=== PATIENT | female | born 1960 | race Caucasian/White ===

== ENCOUNTER 2020-08-06 21:11 | Observation (INO) ==
[2020-08-06] MEDS ORDERED: Ketorolac 15 MG/ML VIAL IVP ONE (21:49)
[2020-08-06] MEDS ORDERED: Isovue-370 500 ML BOTTLE IVP ONE (21:49)
[2020-08-06] MEDS ORDERED: Ondansetron 4 MG/2 ML VIAL IVP ONE (21:49)
[2020-08-06 22:21] LABS: Basophils % 0.3 %; Eosinophils # 0.2 K/mcL (0.0-0.6); Eosinophils % 1.3 %; Hematocrit 39.7 % (35.3-44.9); Hemoglobin 13.3 g/dL (11.5-15.4); Immature Granulocytes % 0.2 % (0-4); Lymphocytes # 1.3 K/mcL (0.6-4.6); Mean Corpuscular HGB Conc 33.5 g/dL (31.6-35.5); Mean Corpuscular Volume 92.5 fL (83.0-100.0); Monocytes # 0.6 K/mcL (0.0-1.3); Monocytes % 4.9 %; Neutrophils # 9.9 K/mcL (1.6-8.9); Platelet Count 235 K/mcL (140-400); Red Blood Count 4.29 M/mcL (3.82-4.97); Red Cell Distribution Width 13.1 % (11.5-14.5); Segmented Neutrophils % 82.3 %; White Blood Count 12.1 K/mcL (4.3-11.1)
[2020-08-06 22:22] LABS: Bilirubin,Urine Negative (Negative); Blood,Urine Negative (Negative); Clarity,Urine Clear (Clear); Color,Urine Light-Yellow (Yellow); Glucose,Urine (UA) Normal (Normal); Ketones,Urine 10 mg/dL (Negative); Leukocyte Esterase,Urine Negative (Negative); Nitrite,Urine Negative (Negative); PH,Urine 5.5 pH Units (5.0-8.0); Protein,Urine Trace mg/dL (Neg-Trace); Specific Gravity,Urine 1.023 (1.010-1.025); Urobilinogen,Urine Normal (Normal)
[2020-08-06 22:41] LABS: Alanine Aminotransferase 12 Units/L (7-52); Albumin 4.4 g/dL (3.5-5.7); Albumin/Globulin Ratio 1.8 (1.1-2.2); Alkaline Phosphatase 59 Units/L (34-104); Aspartate Amino Transferase 17 Units/L (13-39); BUN/Creatinine Ratio 11 (6-26); Bilirubin,Direct 0.1 mg/dL (0.0-0.2); Bilirubin,Total 1.1 mg/dL (0.3-1.0); Blood Urea Nitrogen 8 mg/dL (8-23); Calcium 9.4 mg/dL (8.6-10.3); Carbon Dioxide 25 mEq/L (23-29); Chloride 105 mEq/L (98-107); Globulin 2.4 g/dL (2.4-3.5); Glucose 112 mg/dL (70-105); Lipase 27 Units/L (11-82); Osmolality,Calculated 285 (280-300); Potassium 3.5 mEq/L (3.5-5.1); Sodium 138 mEq/L (136-145); Total Protein 6.8 g/dL (6.4-8.9); eGFR For African Americans > 60 (> 60); eGFR For Non-African Americans > 60 (> 60)
[2020-08-06] MEDS ORDERED: 0.9 % Sodium Chloride 1,000 ML IVC SCH (23:45)
[2020-08-06] MEDS ORDERED: Ondansetron 4 MG/2 ML VIAL IVP PRN (23:46)
[2020-08-07] MEDS ORDERED: Piperacillin/Tazobactam 3.375 GM in 0.9 % Sodium Chloride Mini Bag 100 ML IVPB SCH
[2020-08-07] MEDS: cefOXitin 2,000 MG in Water for inj. (sterile) 20 ML IVP SCH ×3 (00:48→17:13)
[2020-08-07] MEDS ORDERED: Ondansetron 4 MG/2 ML VIAL IVP PRN (07:24)
[2020-08-07] MEDS ORDERED: *HR* HYDROmorphone PF 0.5 MG/0.5 ML SYRINGE IVP PRN (07:24)
[2020-08-07] MEDS ORDERED: Promethazine 6.25 MG in Water for inj. (sterile) 20 ML IVPB PRN (07:24)
[2020-08-07] MEDS ORDERED: *HR* OxyCODONE Immed Rel 5 MG TABLET PO PRN (07:24)
[2020-08-07] MEDS ORDERED: *HR* FentaNYL (PF) 100 MCG/2 ML VIAL ONE (07:30)
[2020-08-07] MEDS ORDERED: *HR* Midazolam HCl 2 MG/2 ML VIAL ONE (07:30)
[2020-08-07] MEDS ORDERED: *HR* Propofol 200 MG/20 ML VIAL IVP ONE (07:30)
[2020-08-07] MEDS ORDERED: Lidocaine HCL 4 ML Topical Solution (Laryng-O-Jet Kit Sterile Pak) TP ONE (07:30)
[2020-08-07] MEDS ORDERED: *HR* Rocuronium Bromide 50 MG/5 ML VIAL ONE (07:30)
[2020-08-07] MEDS ORDERED: *HR* Succinylcholine 200 MG/10 ML VIAL IVP ONE (07:30)
[2020-08-07] MEDS ORDERED: Ondansetron 4 MG/2 ML VIAL ONE (07:30)
[2020-08-07] MEDS ORDERED: Lidocaine -MPF 2% 2 ML VIAL ONE (07:30)
[2020-08-07] MEDS ORDERED: cefOXitin 1,000 MG, 0.9 % Sodium Chloride 1,000 ML IR ONE (08:00)
[2020-08-07] MEDS ORDERED: Sugammadex Sodium 200 MG/2 ML VIAL IV ONE (08:43)
[2020-08-07] MEDS ORDERED: Ketorolac 30 MG/ML VIAL ONE (08:53)
[2020-08-07] MEDS ORDERED: Albuterol 2.5 MG/3 ML NEBULIZER IH STA (09:32)
[2020-08-07] MEDS ORDERED: Albuterol 2.5 MG/3 ML NEBULIZER ONE (09:34)
[2020-08-07] MEDS ORDERED: *HR* Metoprolol 5 MG/5 ML VIAL IVP PRN (10:52)
[2020-08-07] MEDS: 0.9 % Sodium Chloride 1,000 ML IVC SCH (12:00)
[2020-08-07] MEDS: Albuterol 2.5 MG/3 ML NEBULIZER IH SCH ×2 (16:03→21:27)
[2020-08-07] MEDS: *HR* OxyCODONE/APAP 5/325 TABLET PO PRN (21:44)
[2020-08-08] MEDS: 0.9 % Sodium Chloride 1,000 ML IVC SCH (00:15)
[2020-08-08] MEDS: cefOXitin 2,000 MG in Water for inj. (sterile) 20 ML IVP SCH ×3 (00:16→16:01)
[2020-08-08 02:33] LABS: Basophils % 0.1 %; Eosinophils % 0.3 %; Hematocrit 31.8 % (35.3-44.9); Immature Granulocytes % 0.3 % (0-4); Lymphocytes # 1.4 K/mcL (0.6-4.6); Lymphocytes % 18.1 %; Mean Corpuscular Hemoglobin 31.6 pg (28.0-33.3); Mean Corpuscular Volume 95.8 fL (83.0-100.0); Mean Platelet Volume 11.4 fL (9.4-12.4); Monocytes # 0.4 K/mcL (0.0-1.3); Monocytes % 5.1 %; Platelet Count 168 K/mcL (140-400); Red Blood Count 3.32 M/mcL (3.82-4.97); Red Cell Distribution Width 13.6 % (11.5-14.5); Segmented Neutrophils % 76.1 %; White Blood Count 7.8 K/mcL (4.3-11.1)
[2020-08-08 02:37] LABS: Hemoglobin 10.5 g/dL (11.5-15.4)
[2020-08-08 02:53] LABS: BUN/Creatinine Ratio 8 (6-26); Blood Urea Nitrogen 5 mg/dL (8-23); Calcium 8.2 mg/dL (8.6-10.3); Carbon Dioxide 23 mEq/L (23-29); Chloride 112 mEq/L (98-107); Glucose 107 mg/dL (70-105); Osmolality,Calculated 292 (280-300); Potassium 3.4 mEq/L (3.5-5.1); Sodium 142 mEq/L (136-145); eGFR For African Americans > 60 (> 60); eGFR For Non-African Americans > 60 (> 60)
[2020-08-08] MEDS: Albuterol 2.5 MG/3 ML NEBULIZER IH SCH ×4 (04:00→22:42)
[2020-08-08] MEDS: *HR* OxyCODONE/APAP 5/325 TABLET PO PRN (14:51)
[2020-08-09] MEDS: cefOXitin 2,000 MG in Water for inj. (sterile) 20 ML IVP SCH ×2 (00:10→08:55)
[2020-08-09] MEDS: *HR* OxyCODONE/APAP 5/325 TABLET PO PRN (00:11)
[2020-08-09] MEDS: Albuterol 2.5 MG/3 ML NEBULIZER IH SCH ×2 (04:14→10:26)
[2020-08-09 07:32] VITALS: BP 134/65
== END 2020-08-09 11:51 | disposition home or self-care (01) ==
LOC: EMEROOARM 21:11 → 3ANU 21:11
PROVIDERS: ADMIT Surgery; ATTEND Surgery